=== PATIENT | male | born 1985 ===

== ENCOUNTER 2017-11-24 08:01 | Emergency (ER) | payer OTHER ==
[2017-11-24] MEDS ORDERED: Albuterol 0.083% Inhal Sol (2.5 mg/3 mL) UD INH STA (08:54)
--- NOTE | 2017-11-24 08:54 | C.PDOC ---
History Of Present Illness 32 year old male presents to the emergency department with complaints of cough and chest tightness since yesterday. Patient reports that his cough is non- productive, and also complains of a fever. He confirms myalgia but denies asthma or a history of smoking. COUGH, TIGHTNESS SINCE YEST. 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 DENIES ASTHMA, SMOKING. +MYALGIA EXAM MILD DIST NONTOXIC HEENT NEG LUNGS CTA B/L NO W/R/R REMAINDER NEG Time Seen by Provider: 11/24/17 08:32 Chief Complaint (Nursing): Cough, Cold, Congestion History Per: Patient History/Exam Limitations: no limitations Onset/Duration Of Symptoms: Days (1) Current Symptoms Are (Timing): Still Present Location Of Pain: Diffuse Myalgias Associated Symptoms: Fever, Cough (non-productive), Myalgias, Other (chest tightness) Past Medical History Reviewed: Historical Data, Nursing Documentation, Vital Signs Vital Signs: Last Vital Signs Temp 98.5 F 11/24/17 10:10 Pulse 83 11/24/17 10:10 Resp 19 11/24/17 10:10 BP 128/77 11/24/17 10:10 Pulse Ox 100 11/24/17 10:10 - Medical History PMH: No Chronic Diseases Denies: Asthma Surgical History: No Surg Hx Family History: States: No Known Family Hx - Social History Hx Tobacco Use: No Hx Alcohol Use: No Hx Substance Use: No Review Of Systems Except As Marked, All Systems Reviewed And Found Negative. Constitutional: Positive for: Fever, Other (myalgias) Cardiovascular: Positive for: Other (chest tightness) Respiratory: Positive for: Cough (non-productive) Physical Exam - Physical Exam Appears: Non-toxic, In Acute Distress (mild) Skin: Normal Color, Warm, Dry Head: Atraumatic, Normacephalic Eye(s): bilateral: Normal Inspection Ear(s): Bilateral: Normal Nose: Normal Oral Mucosa: Moist Throat: Normal, No Erythema, No Exudate Neck: Normal, Supple Chest: Symmetrical Cardiovascular: Rhythm Regular, No Murmur Respiratory: Normal Breath Sounds (CTA bilaterally), No Rales, No Rhonchi, No Wheezing Gastrointestinal/Abdominal: Normal Exam, Soft, No Tenderness, No Guarding, No Rebound Extremity: Normal ROM Neurological/Psych: Oriented x3, Normal Speech, Normal Cognition Gait: Steady ED Course And Treatment O2 Sat by Pulse Oximetry: 99 (RA) Pulse Ox Interpretation: Normal - Radiology CXR: Interpreted by Me CXR Interpretation: Yes: No Acute Disease Progress Note: Plan: CXR Two Views. Albuterol 2.5mg INH. Motrin 600mg PO. Tessalon Perles 200mg PO. Tylenol 975mg PO Reevaluation Time: 09:49 Reassessment Condition: Improved Disposition Counseled Patient/Family Regarding: Studies Performed, Diagnosis, Need For Followup, Rx Given - Disposition Referrals: YOUR,PMD [Other] Disposition: HOME/ ROUTINE Disposition Time: :49 Condition: IMPROVED Prescriptions: Benzonatate [Tessalon Perles] 200 mg PO TID PRN #15 sgl PRN Reason: Cough Ibuprofen [Motrin] 600 mg PO Q6 #30 tab Instructions: Upper Respiratory Infection (ED) Forms: [employer] (Lithuanian) - Clinical Impression Clinical Impression: Upper respiratory infection - Scribe Statement The provider has reviewed the documentation as recorded by the Scribe (Omar Puga) Provider Attestation: All medical record entries made by the Scribe were at my direction and personally dictated by me. I have reviewed the chart and agree that the record accurately reflects my personal performance of the history, physical exam, medical decision making, and the department course for this patient. I have also personally directed, reviewed, and agree with the discharge instructions and disposition.
[2017-11-24] MEDS ORDERED: Albuterol 0.083% Inhal Sol (2.5 mg/3 mL) UD ONE (09:02)
--- NOTE | 2017-11-24 09:52 | RAD ---
Date of service: 11/24/2017 HISTORY: COUGH COMPARISON: No prior. TECHNIQUE: Chest PA and lateral FINDINGS: LUNGS: No active pulmonary disease. PLEURA: No significant pleural effusion identified. No pneumothorax apparent. CARDIOVASCULAR: Normal. OSSEOUS STRUCTURES: No significant abnormalities. VISUALIZED UPPER ABDOMEN: Normal. OTHER FINDINGS: None. IMPRESSION: No acute cardiopulmonary disease appreciated.
[2017-11-24 10:11] VITALS: BP 128/77; PULSE 83; RESP 19; TEMP 98.5
[2017-11-24 10:35] VITALS: O2SAT 99
== END 2017-11-24 10:11 | disposition home or self-care (01) ==
LOC: C.ER 08:01
DX: J06.9 Acute upper respiratory infection, unspecified (principal)

== ENCOUNTER 2018-03-02 15:27 | Emergency (ER) | payer OTHER ==
[2018-03-02 15:37] VITALS: BP 119/76; PULSE 80; RESP 20; TEMP 98.4; O2SAT 98
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
== END 2018-03-02 16:39 | disposition home or self-care (01) ==
LOC: C.ER 15:27
DX: M54.5 Low back pain (principal); V49.9XXA Car occupant (driver) (passenger) injured in unspecified traffic accident, initial encounter